=== PATIENT | male | born 1990 | race Caucasian/White ===

== ENCOUNTER 2019-09-02 19:01 | Emergency (ER) | payer SELFPAY ==
[2019-09-02 19:03] VITALS: BP 128/80; PULSE 102; RESP 16; TEMP 37.8; O2SAT 96
--- NOTE | 2019-09-02 19:30 | ED.GENADULT ---
HPI - General Adult General Chief complaint: Allergic Reaction Stated complaint: swelling to mouth,tongue Time Seen by Provider: 09/02/19 19:05 Source: patient and RN notes reviewed Mode of arrival: ambulatory Limitations: no limitations History of Present Illness HPI narrative: 29 male presents with concern for swollen tongue, lips. Reports he had a painful tooth on the left lower side on Friday, went to [facility] and picked up an [id number] topical gel. Reports shortly after using the gel his tongue and lips became swollen. Reports taking Benadryl with no relief. Reports his tongue is painful, ulcerated, lips are painful, ulcerated. Denies difficulty breathing, trouble swallowing, stridor, fever, nausea, vomiting. Reports he called his dentist after swelling started, the dentist prescribed him Flagyl and cephalexin which she has been taking as prescribed since Friday, reports he has an appoint with his dentist next week. Reports that tooth pain is still present. MD complaint: Swollen tongue Related Data Home Medications Medication Instructions Recorded Confirmed acetaminophen-codeine tablet 09/02/19 cephalexin 09/02/19 metronidazole 09/02/19 Allergies Allergy/AdvReac Type Severity Reaction Status Date / Time Penicillins Allergy Hives Verified 09/02/19 19:05 Review of Systems Review of Systems: Narrative: CONSTITUTIONAL: Denies malaise, chills, sweats, or fever. EYES: Denies visual changes, redness, or discharge. ENT: Denies rhinorrhea, congestion, sinus pain, otalgia or sore throat. Reports swollen, painful tongue. Reports swollen, painful lips CARDIOVASCULAR: Denies chest pain, palpitations RESPIRATORY: Denies cough or dyspnea. GASTROINTESTINAL: Denies abdominal pain, nausea, vomiting, diarrhea SKIN: Reports ulcerated tongue and lips MUSCULOSKELETAL: Denies myalgia. NEUROLOGIC: Denies numbness, weakness, or headache. All systems reviewed & are unremarkable except as noted in HPI and below PMFSH Comments At time of signature, agree with nursing past medical, surgical, social and family history. There is no relevant family history pertinent to the presenting complaint Exam Narrative: Exam Narrative: GENERAL: Well-appearing, well-nourished, and in no acute distress. HEAD: Normocephalic, atraumatic. EYES: PERRLA, conjunctivae clear ENT: Nares clear, turbinates pink, no rhinorrhea or epistaxis. Mucous membranes moist. No uvula edema, oropharynx without erythema. Tongue mildly edematous, ulcerated, lower lip mildly edematous, ulcerated consistent with stomatitis, mucositis NECK: Supple. CHEST: No respiratory distress. Clear to auscultation. No bony deformities, no asymmetry. Speaks in full sentences. No stridor HEART: Regular rate and rhythm. No murmur heard. Normal peripheral pulses. SKIN: Warm, dry. Ulcerated, mildly edematous lower lip NEURO: Alert and oriented x3. PSYCH: Normal mood and affect Course Course Emergency Course: Patient is aware of diagnosis, understands and agrees to treatment plan. Anticipatory guidance given. Patient agrees to follow-up as directed and is aware of reasons to seek care at the emergency department. Portions of this record may have been created with voice recognition software Vital Signs Vital signs: Vital Signs Temperature 100.0 F H 09/02/19 19:03 Pulse Rate 102 H 09/02/19 19:03 Respiratory Rate 16 09/02/19 19:03 Blood Pressure 128/80 09/02/19 19:03 Pulse Oximetry 96 09/02/19 19:03 Temperature 100.0 F H 09/02/19 19:03 Pulse Rate 102 H 09/02/19 19:03 Respiratory Rate 16 09/02/19 19:03 Blood Pressure 128/80 09/02/19 19:03 Pulse Oximetry 96 09/02/19 19:03 Reviewed. Medical Decision Making Differential Diagnosis Differential Diagnosis: Exam findings show no acute concerns or changes; patient is non-toxic appearing and is in no distress. No uvular edema, soft palate edema, no stridor, symptoms have been present for 3 d
== END 2019-09-02 19:55 | disposition home or self-care (01) ==
PROVIDERS: Emergency Provider Nurse Practitioner; PCP Family Medicine
DX: K12.1 Other forms of stomatitis (principal); K12.30 Oral mucositis (ulcerative), unspecified
CPT/HCPCS: 96372; 99213; A9270; G0463; J1100